=== PATIENT | male | born 1950 | race Caucasian/White ===

== ENCOUNTER → 2018-08-23 | Outpatient (CLI) | payer MEDICARE | END | disposition home or self-care (01) | LOC: PLD 08:03 → LAB SHORT 08:03 | DX: C44.311 Basal cell carcinoma of skin of nose (principal) | CPT/HCPCS: 88305 ==

== ENCOUNTER → 2019-10-15 | Outpatient (CLI) | payer MEDICARE | END | disposition home or self-care (01) | LOC: LAB SHORT 08:48 → PLD 08:48 | DX: Z01.812 Encounter for preprocedural laboratory examination (principal); L30.8 Other specified dermatitis; L40.9 Psoriasis, unspecified | CPT/HCPCS: 88305; 88312 ==

== ENCOUNTER 2020-01-28 01:11 | Day surgery (SDC) | payer MEDICARE, OTHER | END 2020-01-28 23:23 | disposition home or self-care (01) | LOC: WOUND 01:11 | DX: L89.893 Pressure ulcer of other site, stage 3 (principal); I87.2 Venous insufficiency (chronic) (peripheral); I73.9 Peripheral vascular disease, unspecified; Z79.899 Other long term (current) drug therapy | CPT/HCPCS: G0463 ==

== ENCOUNTER 2020-02-04 16:15 | Day surgery (SDC) | payer MEDICARE, OTHER | END 2020-02-04 22:49 | disposition home or self-care (01) | LOC: WOUND 16:15 | DX: L89.893 Pressure ulcer of other site, stage 3 (principal); I87.2 Venous insufficiency (chronic) (peripheral); I73.9 Peripheral vascular disease, unspecified; Z79.82 Long term (current) use of aspirin; Z79.899 Other long term (current) drug therapy ==

== ENCOUNTER 2020-03-17 00:38 | Day surgery (SDC) | payer MEDICARE | END 2020-03-17 23:24 | disposition home or self-care (01) | LOC: WOUND 00:38 | DX: L89.893 Pressure ulcer of other site, stage 3 (principal); I87.2 Venous insufficiency (chronic) (peripheral); I73.9 Peripheral vascular disease, unspecified ==

== ENCOUNTER 2020-09-11 16:14 | Inpatient (IN) | payer MEDICARE, SELFPAY ==
[~2020-09-11] VITALS: Ht 185.4 cm; Wt 109.8 kg
[2020-09-11 18:07] LABS: BASOPHILS ABSOLUTE AUTO 0.07 K/mm3 (0.00-0.23); BASOPHILS PERCENT AUTO 1 % (0-2); EOSINOPHILS ABSOLUTE AUTO 0.24 K/mm3 (0.00-0.68); EOSINOPHILS PERCENT AUTO 2 % (0-6); Hemoglobin 10.8 g/dL (13.5-17.5); IMMATURE GRAN ABSOLUTE AUTO 0.06 K/mm3 (0.00-0.10); IMMATURE GRAN PERCENT AUTO 1 % (0-1); LYMPHOCYTES ABSOLUTE AUTO 2.39 K/mm3 (0.84-5.20); LYMPHOCYTES PERCENT AUTO 18 % (21-46); MONOCYTES ABSOLUTE AUTO 1.52 K/mm3 (0.16-1.47); MONOCYTES PERCENT AUTO 12 % (4-13); Mean Corpuscular HGB 26.8 pg (26.0-34.0); Mean Corpuscular HGB Conc 31.8 g/dL (31.5-36.5); Mean Corpuscular Volume 84 fL (80-100); Mean Platelet Volume 9.2 fL (9.1-12.4); NEUTROPHILS ABSOLUTE AUTO 8.78 K/mm3 (1.96-9.15); NEUTROPHILS PERCENT AUTO 67 % (41-73); Platelet Count 371 K/mm3 (150-400); RDW Coefficient Variation 12.7 % (11.7-14.2); RDW Standard Deviation 39.2 fL (35.1-46.3); Red Blood Cell Count 4.03 M/mm3 (4.30-5.90); White Blood Cell Count 13.06 K/mm3 (4.00-11.30)
[2020-09-11 18:30] LABS: Alanine Aminotransfer (ALT/SGP 24 U/L (12-78); Albumin, Blood 3.6 g/dL (3.4-5.0); Albumin/Globulin Ratio 0.7 (0.8-1.8); Alk Phos 58 U/L (50-136); Anion Gap 7 mmol/L (6-16); Aspartate Aminotrans (AST/SGOT 15 U/L (12-37); Bilirubin, Total 0.5 mg/dL (0.1-1.0); Blood Urea Nitrogen 36 mg/dL (8-24); CO2, Blood 24 mmol/L (21-32); Calcium, Blood 9.7 mg/dL (8.5-10.1); Chloride, Blood 105 mmol/L (98-108); Globulin, Blood 4.9 g/dL (2.2-4.0); Glomerular Filtration Rate 40 (60-); Glucose, Blood 111 mg/dL (70-99); Potassium, Blood 4.3 mmol/L (3.5-5.5); Sodium, Blood 136 mmol/L (136-145); Total Protein, Blood 8.5 g/dL (6.4-8.2)
[2020-09-11] MEDS ORDERED: CYCLOBENZAPRINE5 MG PO (20:20)
[2020-09-11] MEDS ORDERED: NEURONTIN400 M1 PO (20:20)
[2020-09-11] MEDS ORDERED: ZESTRIL40 M1 PO (20:21)
[2020-09-11] MEDS ORDERED: HYDCHL25 PO (20:21)
[2020-09-11] MEDS ORDERED: FENO160 PO (20:21)
[2020-09-11] MEDS ORDERED: OMEP20ER PO (20:22)
[2020-09-11] MEDS ORDERED: OMEGA-3 FISH O1 EA13 PO (20:40)
[2020-09-11] MEDS ORDERED: ZYRTEC10 M4 PO (20:41)
[2020-09-11] MEDS ORDERED: Aspir 8181 MG PO (20:41)
[2020-09-12 05:16] LABS: BASOPHILS ABSOLUTE AUTO 0.04 K/mm3 (0.00-0.23); BASOPHILS PERCENT AUTO 0 % (0-2); EOSINOPHILS ABSOLUTE AUTO 0.42 K/mm3 (0.00-0.68); EOSINOPHILS PERCENT AUTO 4 % (0-6); Hematocrit 31.8 % (37.0-53.0); Hemoglobin 10.2 g/dL (13.5-17.5); IMMATURE GRAN ABSOLUTE AUTO 0.04 K/mm3 (0.00-0.10); IMMATURE GRAN PERCENT AUTO 0 % (0-1); LYMPHOCYTES ABSOLUTE AUTO 2.34 K/mm3 (0.84-5.20); LYMPHOCYTES PERCENT AUTO 23 % (21-46); MONOCYTES ABSOLUTE AUTO 1.03 K/mm3 (0.16-1.47); MONOCYTES PERCENT AUTO 10 % (4-13); Mean Corpuscular HGB 26.8 pg (26.0-34.0); Mean Corpuscular HGB Conc 32.1 g/dL (31.5-36.5); Mean Corpuscular Volume 84 fL (80-100); Mean Platelet Volume 9.1 fL (9.1-12.4); NEUTROPHILS ABSOLUTE AUTO 6.26 K/mm3 (1.96-9.15); NEUTROPHILS PERCENT AUTO 62 % (41-73); Platelet Count 360 K/mm3 (150-400); RDW Coefficient Variation 12.8 % (11.7-14.2); RDW Standard Deviation 38.6 fL (35.1-46.3); White Blood Cell Count 10.13 K/mm3 (4.00-11.30)
[2020-09-12 05:38] LABS: Bun/Creatinine Ratio 18.6 (12.0-20.0); Calcium, Blood 8.8 mg/dL (8.5-10.1); Creatinine, Blood 1.83 mg/dL (0.60-1.20); Potassium, Blood 4.1 mmol/L (3.5-5.5)
--- NOTE | 2020-09-12 06:11 | NUR ---
PT NEW ADMIT TO FLOOR AT 2126. A/O X4. AMBULATES INDEPENDENTLY IN ROOM. L FOOT IS SWOLLEN, RED. NO OPENING OR DISCHARGES. DENIES PAIN, NAUSEA, SOB. ROOM AIR MAINTAINING GOOD 02 SATS. VSS. DIRECTORY CARRIER DR. SAAB SAW PT THIS AM. PT IS NOW NPO AND PLAN TO HAVE SURGERY TODAY. L FOOT HAS BEEN ELEVATED ON PILLOW ALL NIGHT. CALL LIGHT WITHIN REACH. WILL REPORT TO ONCOMING RN.
[2020-09-12 09:37] LABS: SARS-Cov-2 (COVID-19) PCR, MMC NEGATIVE (NEGATIVE)
--- NOTE | 2020-09-12 15:34 | NUR ---
PT TO SDS FROM ROOM 310. REPORTS NPO SINCE 2199 LAST NOC. History, Chart, Medications and Allergies reviewed before start of procedure. Lungs clear T/O to Auscultation. PT CONCERNED ABOUT AMPUTATION, REQUESTING ADDITIONAL INFORMATION ON PROCEDURE. NOTIFIED.
--- NOTE | 2020-09-12 17:15 | NUR ---
SHIFT SUMMARY PT A&OX4, ABLE TO MAKE NEEDS KNOWN PLEASANT AND COOPERATIVE TO CARE. NO C/O PAIN OR ANY DISCOMFORT THIS SHIFT. DENIES CP / SOB / N&V. EARLY THIS SHIFT, PT WAS ACCOMPANIED BY THIS NURSE TO HIS CAR VIA WHEELCHAIR TO GET HIS PHONE SO PT CAN NOTIFY FAMILY. PT NPO PRIOR TO SHCHEDULED PROCEDURE TODAY. PT TAKEN TO DAY SURGERY BY TENZIN STACK. VSS.
--- NOTE | 2020-09-13 06:05 | NUR ---
SHIFT SUMMARY- PT. S/P L TRANSMETATARSAL AMPUTATION, POD#1. A&O, PLEASANT AND COOPERATIVE WITH CARE. MEDICATED LAST NIGHT FOR PAIN WITH MINIMAL EFFECT. PT. IS NONWT BEARING TO L LEG, USING URINAL AT BEDSIDE. C/O SORE THROAT LAST NIGHT, TYLENOL GIVEN PER EMAR, PT. REPORTED SOME IMPROVEMENT. PT. RESTED ON/OFF T/O THE NIGHT, NO APPARENT DISTRESS NOTED. VSS. CALL LIGHT WITHIN REACH AND SIDE RAILS UP X2. WILL CONT TO MONITOR.
--- NOTE | 2020-09-13 17:00 | NUR ---
SHIFT SUMMARY PATIENT MEDICATED X2 FOR PAIN, DENIES NAUSEA AND SHORTNESS OF BREATH. UP 1 ASSIST W/GAIT BELT AND FWW TO BATHROOM. WORKED WITH PT TODAY. NAPPED OFF AND ON DURING SHIFT. EATING AND DRINKING WELL. PLEASANT AND COOPERATIVE WITH CARE.
--- NOTE | 2020-09-14 05:30 | NUR ---
SHIFT SUMMARY- MO ACUTE EVENTS OVERNIGHT. PT. AMBULATED TO THE BATHROOM W/WALKER AND MINIMAL ASSIST. TOLERATED WELL. PT. MEDICATED FOR PAIN 1X LAST NIGHT, REPORTED GOOD RELIEF. SLEPT T/O THE NIGHT, NO APPARENT DISTRESS NOTED. CALL LIGHT WITHIN REACH AND SIDE RAILS UPX2. WILL CONT TO MONITOR.
[2020-09-14 05:33] LABS: BASOPHILS ABSOLUTE AUTO 0.03 K/mm3 (0.00-0.23); BASOPHILS PERCENT AUTO 0 % (0-2); EOSINOPHILS ABSOLUTE AUTO 0.43 K/mm3 (0.00-0.68); EOSINOPHILS PERCENT AUTO 5 % (0-6); Hematocrit 31.9 % (37.0-53.0); Hemoglobin 10.2 g/dL (13.5-17.5); IMMATURE GRAN ABSOLUTE AUTO 0.04 K/mm3 (0.00-0.10); IMMATURE GRAN PERCENT AUTO 1 % (0-1); LYMPHOCYTES ABSOLUTE AUTO 2.31 K/mm3 (0.84-5.20); LYMPHOCYTES PERCENT AUTO 27 % (21-46); MONOCYTES ABSOLUTE AUTO 0.59 K/mm3 (0.16-1.47); MONOCYTES PERCENT AUTO 7 % (4-13); Mean Corpuscular HGB 26.9 pg (26.0-34.0); Mean Corpuscular Volume 84 fL (80-100); Mean Platelet Volume 9.3 fL (9.1-12.4); NEUTROPHILS ABSOLUTE AUTO 5.16 K/mm3 (1.96-9.15); NEUTROPHILS PERCENT AUTO 60 % (41-73); Platelet Count 371 K/mm3 (150-400); RDW Coefficient Variation 12.4 % (11.7-14.2); Red Blood Cell Count 3.79 M/mm3 (4.30-5.90); White Blood Cell Count 8.56 K/mm3 (4.00-11.30)
[2020-09-14 05:54] LABS: Albumin, Blood 2.9 g/dL (3.4-5.0); Anion Gap 6 mmol/L (6-16); Blood Urea Nitrogen 25 mg/dL (8-24); Bun/Creatinine Ratio 16.9 (12.0-20.0); CO2, Blood 26 mmol/L (21-32); Calcium, Blood 8.9 mg/dL (8.5-10.1); Chloride, Blood 105 mmol/L (98-108); Creatinine, Blood 1.48 mg/dL (0.60-1.20); Glomerular Filtration Rate 50 (60-); Glucose, Blood 92 mg/dL (70-99); Phosphorus, Blood 2.7 mg/dL (2.5-4.9); Potassium, Blood 4.1 mmol/L (3.5-5.5); Sodium, Blood 137 mmol/L (136-145)
--- NOTE | 2020-09-14 17:33 | NUR ---
SHIFT SUMMARY PATIENT MEDICATED X1 FOR PAIN THIS SHIFT, DENIES NAUSEA AND SHORTNESS OF BREATH. UP SBA W/FWW TO BR. DR. SAAB CHANGED DRESSING TODAY. WOUND CULTURE POSITIVE FOR MRSA, VANCO STARTED. PATIENT EATING AND DRINKING WELL. PLEASANT AND COOPERATIVE WITH CARE.
--- NOTE | 2020-09-15 05:23 | NUR ---
SHIFT SUMMARY- NO ACUTE CHANGES TO CONDITION. PT. ASLEEP MOST OF THE NIGHT, NO APPARENT DISTRESS NOTED AND NO COMPLAINTS OF PAIN OR DISCOMFORT. DSG TO L FOOT C/D/I. PT. TOLERATING IV ABX, VSS. CALL LIGHT WITHIN REACH AND SIDE RAILS UPX2. WILL CONT TO MONITOR.
[2020-09-15 10:26] LABS: Vancomycin, Trough 24.3 ug/mL (5.0-10.0)
[2020-09-15] MEDS ORDERED: HYDR1TAB94 PO (13:34)
[2020-09-15] MEDS ORDERED: DOXY100 PO (13:35)
--- NOTE | 2020-09-15 15:50 | NUR ---
DISCHARGE DISCHARGE MEDICATIONS AND INSTRUCTIONS EXPLAINED TO PATIENT. PATIENT STATED UNDERSTANDING. HARD COPY PAIN MEDICATION PRESCRIPTION GIVEN TO PATIENT. FOLLOW UP WITH DR. SAAB SCHEDULED. IV REMOVED WITHOUT DIFFICULTY. PATIENT TRANSFERED TO PRIVATE VEHICLE VIA WHEELCHAIR.
== END 2020-09-15 15:17 | disposition home health service (06) | DRG 475 ==
LOC: ER 16:14 → MEDS 20:00 → ENPENDDIS 09-15 12:57 → MEDS 09-15 15:17
PROVIDERS: Emergency Medicine; Internal Medicine; Podiatrist Foot & Ankle Surgery; ADMIT Family Medicine
PROC: 0Y6N0ZB Detachment at Left Foot, Partial 2nd Ray, Open Approach (ICD-10-PCS; 2020-09-12)
PROC: 0Y6N0ZC Detachment at Left Foot, Partial 3rd Ray, Open Approach (ICD-10-PCS; 2020-09-12)
PROC: 0Y6N0ZD Detachment at Left Foot, Partial 4th Ray, Open Approach (ICD-10-PCS; 2020-09-12)
PROC: 0Y6N0ZF Detachment at Left Foot, Partial 5th Ray, Open Approach (ICD-10-PCS; 2020-09-12)
PROC: HZ2ZZZZ Detoxification Services for Substance Abuse Treatment (ICD-10-PCS; 2020-09-12)
PROC: 0Y6N0Z9 Detachment at Left Foot, Partial 1st Ray, Open Approach (ICD-10-PCS; principal; 2020-09-12 14:15)
DX: M86.171 Other acute osteomyelitis, right ankle and foot (principal); L02.612 Cutaneous abscess of left foot; Z20.822 Contact with and (suspected) exposure to COVID-19; I10 Essential (primary) hypertension; E78.5 Hyperlipidemia, unspecified; K21.9 Gastro-esophageal reflux disease without esophagitis; D63.1 Anemia in chronic kidney disease; N18.30 Chronic kidney disease, stage 3 unspecified; F10.10 Alcohol abuse, uncomplicated; A49.02 Methicillin resistant Staphylococcus aureus infection, unspecified site; J30.2 Other seasonal allergic rhinitis; L97.529 Non-pressure chronic ulcer of other part of left foot with unspecified severity; L97.519 Non-pressure chronic ulcer of other part of right foot with unspecified severity; Z87.891 Personal history of nicotine dependence; Z79.82 Long term (current) use of aspirin; Z79.899 Other long term (current) drug therapy
CPT/HCPCS: 36415; 73620; 80048; 80053; 80069; 80202; 82607; 82746; 83036; 85025; 85651; 87070; 87075; 87077; 87186; 87205; 88307; 93005; 93010; 96365; 97116; 97161; 97165; 97535; 99284-25; A9270; J0171; J1100; J1650; J2405; J2543; J2704; J3010; J3370; J7050; J7120; U0004

== ENCOUNTER 2021-12-10 12:42 | Day surgery (SDC) | payer MEDICARE ==
[~2021-12-10] VITALS: Ht 185.4 cm; Wt 112.0 kg
[~2021-12-10 12:42] MED LIST: Aspir 8181 MG PO; CYCLOBENZAPRINE5 MG PO; DOXY100 PO; FENO160 PO; HYDCHL25 PO; HYDR1TAB94 PO; NEURONTIN400 M1 PO; OMEGA-3 FISH O1 EA13 PO; OMEP20ER PO; ZESTRIL40 M1 PO; ZYRTEC10 M4 PO
--- NOTE | 2021-12-10 13:59 | NUR ---
Ambulatory in Day Surgery. Patient states colon prep results clear. History, Chart, Medications and Allergies reviewed before start of procedure.Patient confirms NPO status and agrees with scheduled surgery. Patient States Post-Procedure ride home has been arranged.
--- NOTE | 2021-12-10 14:21 | NUR ---
12/10/21 1421 Mayra Castellanos HISTORY, CHART, MEDICATIONS AND ALLERGIES REVIEWED BEFORE START OF PROCEDURE. PATIENT CONFIRMS NPO STATUS AND AGREES WITH SCHEDULED PROCEDURE. 3-LEAD EKG REVIEWED WITH PHYSICIAN PRIOR TO START OF PROCEDURE. MONITOR INTACT WITH CONTINUOUS PULSE OXIMETRY,CAPNOGRAPHY, 3-LEAD EKG, INTERMITTENT BP. SUPPLEMENTAL O2 TO BE TITRATED THROUGHOUT PROCEDURE TO MAINTAIN O2 SATURATION ABOVE 90%. PATIENT DETERMINED TO BE ASA APPROPRIATE FOR PROPOFOL SEDATION PRIOR TO START OF PROCEDURE BY DR. SUE. LIDO SPRAYED TO BACK OF THROAT PER MD ORDERS PRIOR TO PROCEDURE.
--- NOTE | 2021-12-10 16:04 | NUR ---
D/C TO HOME IN W/C WITH DEENA BUTTS. D/C INSTRUCTIONS REVIEWED. COPIES GIVEN. VSS. PT TO F/U PER DR. MANZO
== END 2021-12-10 23:00 | disposition home or self-care (01) ==
LOC: ORSCMMR 12:42 → ORD 14:15 → ORSCMMR 14:15 → ORSCSDS 14:15 → ORSCMMR 23:00
PROVIDERS: Student in an Organized Health Care Education/Training Program
PROC: 0DBK8ZX Excision of Ascending Colon, Via Natural or Artificial Opening Endoscopic, Diagnostic (ICD-10-PCS; principal; 2021-12-10 14:15)
PROC: 0DJ08ZZ Inspection of Upper Intestinal Tract, Via Natural or Artificial Opening Endoscopic (ICD-10-PCS; principal; 2021-12-10 14:15)
PROC: 0DBL8ZX Excision of Transverse Colon, Via Natural or Artificial Opening Endoscopic, Diagnostic (ICD-10-PCS; principal; 2021-12-10 14:15)
PROC: 0DBM8ZX Excision of Descending Colon, Via Natural or Artificial Opening Endoscopic, Diagnostic (ICD-10-PCS; principal; 2021-12-10 14:15)
PROC: 3E0H8KZ Introduction of Other Diagnostic Substance into Lower GI, Via Natural or Artificial Opening Endoscopic (ICD-10-PCS; principal; 2021-12-10 14:15)
PROC: 0DBN8ZX Excision of Sigmoid Colon, Via Natural or Artificial Opening Endoscopic, Diagnostic (ICD-10-PCS; principal; 2021-12-10 14:15)
DX: K21.9 Gastro-esophageal reflux disease without esophagitis (principal); K92.1 Melena; D12.5 Benign neoplasm of sigmoid colon; D12.3 Benign neoplasm of transverse colon; D12.2 Benign neoplasm of ascending colon; K63.5 Polyp of colon; K57.30 Diverticulosis of large intestine without perforation or abscess without bleeding; K64.8 Other hemorrhoids; K64.4 Residual hemorrhoidal skin tags; I10 Essential (primary) hypertension; Z79.899 Other long term (current) drug therapy
CPT/HCPCS: 88305; J2250; J2704; J7120

== ENCOUNTER → 2024-06-21 | Outpatient (CLI) | payer MEDICARE ==
[2024-06-21 19:20] LABS: BASOPHILS ABSOLUTE AUTO 0.08 K/mm3 (0.00-0.23); BASOPHILS PERCENT AUTO 1 % (0-2); EOSINOPHILS ABSOLUTE AUTO 0.41 K/mm3 (0.00-0.68); EOSINOPHILS PERCENT AUTO 6 % (0-6); Hematocrit 42.6 % (37.0-53.0); Hemoglobin 14.6 g/dL (13.5-17.5); IMMATURE GRAN ABSOLUTE AUTO 0.03 K/mm3 (0.00-0.10); IMMATURE GRAN PERCENT AUTO 1 % (0-1); LYMPHOCYTES ABSOLUTE AUTO 2.32 K/mm3 (0.84-5.20); LYMPHOCYTES PERCENT AUTO 36 % (21-46); MONOCYTES ABSOLUTE AUTO 0.65 K/mm3 (0.16-1.47); MONOCYTES PERCENT AUTO 10 % (4-13); Mean Corpuscular HGB 29.7 pg (26.0-34.0); Mean Corpuscular HGB Conc 34.3 g/dL (31.5-36.5); Mean Corpuscular Volume 87 fL (80-100); Mean Platelet Volume 10.1 fL (9.1-12.4); NEUTROPHILS ABSOLUTE AUTO 3.02 K/mm3 (1.96-9.15); NEUTROPHILS PERCENT AUTO 46 % (41-73); Platelet Count 193 K/mm3 (150-400); RDW Coefficient Variation 13.2 % (11.7-14.2); RDW Standard Deviation 41.6 fL (35.1-46.3); Red Blood Cell Count 4.92 M/mm3 (4.30-5.90); White Blood Cell Count 6.51 K/mm3 (4.00-11.30)
[2024-06-22 04:39] LABS: Alanine Aminotransfer (ALT/SGP 62 U/L (12-78); Albumin, Blood 4.1 g/dL (3.4-5.0); Albumin/Globulin Ratio 1.2 (0.8-1.8); Alk Phos 78 U/L (50-136); Anion Gap 12 mmol/L (3-11); Aspartate Aminotrans (AST/SGOT 38 U/L (12-37); Bilirubin, Total 0.4 mg/dL (0.1-1.0); Blood Urea Nitrogen 25 mg/dL (8-24); Bun/Creatinine Ratio 22.3 (12.0-20.0); CHOL/HDL RATIO 6.4; CO2, Blood 21 mmol/L (21-32); Calcium, Blood 9.1 mg/dL (8.5-10.1); Chloride, Blood 109 mmol/L (98-108); Cholesterol 159 mg/dL (50-200); Creatinine, Blood 1.12 mg/dL (0.60-1.20); Globulin, Blood 3.4 g/dL (2.2-4.0); Glomerular Filtration Rate 70 (60-); Glucose, Blood 126 mg/dL (70-99); HDL Cholesterol 25 mg/dL (>39); LDL/HDL RATIO Unable to Calculate; Low Density Lipoprotein Chol Unable to Calculate mg/dL (0-110); Sodium, Blood 138 mmol/L (136-145); Total Protein, Blood 7.5 g/dL (6.4-8.2); Triglycerides 621 mg/dL (30-160); Very Low Density Lipoprot Chol Unable to Calculate mg/dL (6-32)
[2024-06-22 04:51] LABS: LDL Direct Measurement 76 mg/dL (0-130)
== END ==
LOC: LAB 18:27 → LAB SHORT 18:27
PROVIDERS: Nurse Practitioner Family
DX: I10 Essential (primary) hypertension (principal); E78.1 Pure hyperglyceridemia; E55.9 Vitamin D deficiency, unspecified
CPT/HCPCS: 80053; 80061; 82306; 83721; 84443; 85025